=== PATIENT | female | born 1955 | race American Indian/Alaskan Native ===

== ENCOUNTER 2020-10-23 18:58 | Emergency (ER) | payer OTHER ==
[2020-10-23 20:03] VITALS: BP 154/66
--- NOTE | 2020-10-23 21:54 | Emergency Department Report ---
ED Back Pain/Injury HPI - General Chief Complaint: Back Pain/Injury Stated Complaint: BACK/NECK PAIN Source: patient Limitations: No Limitations - History of Present Illness Initial Comments: Patient is a 65-year-old -[place] female with a history of hypertension and chronic low back pain who presents to the ED with complaint of acute exacerbation of her chronic low back pain and right lateral neck pain that radiates to the right arm for the last 3 months, worse in the last week. Patient states that her job entails heavy lifting and that she has been taking ibuprofen 800 mg as needed for pain with no relief. Patient denies dizziness, syncope, chest pain, shortness of breath, fall, traumatic injury, dizziness, headache, numbness and tingling or weakness of upper and lower extremities bilaterally, nausea and vomiting or headache. MD Complaint: back pain (Lower back pain), other (right lateral neck pain that radiates to the left arm, heavy lifting) -: Gradual, month(s) (3) Similar Symptoms Previously: Yes (chronic) Place: home Radiation: none Severity: moderate Severity scale (0 -10): 4 Quality: sharp, aching Consistency: constant Improves With: none Worsens With: movement, walking Context: while lifting, turning/twisting Associated Symptoms: denies other symptoms. denies: confusion, weakness, chest pain, numbness, difficulty walking, cough, difficulty urinating, diaphoresis, incontinence, fever/chills, constipation, headaches, abdominal pain, loss of appetite, malaise, nausea/vomiting, rash, seizure, shortness of breath, other Treatments Prior to Arrival: NSAIDS (Motrin 800mg prior to arrival) - Related Data Previous Rx's Medication Instructions Recorded Last Taken Type Baclofen 20 mg PO QHS PRN #30 tablet 10/23/20 Unknown Rx predniSONE [Deltasone] 40 mg PO QDAY #10 tab 10/23/20 Unknown Rx traMADoL [Ultram] 50 mg PO Q6HR PRN #12 tablet 10/23/20 Unknown Rx Allergies Allergy/AdvReac Type Severity Reaction Status Date / Time No Known Allergies Allergy Unverified 10/23/20 20:00 ED Review of Systems ROS: Stated complaint: BACK/NECK PAIN Other details as noted in HPI Constitutional: denies: chills, fever Eyes: denies: eye pain, eye discharge, vision change ENT: denies: ear pain, throat pain Respiratory: denies: cough, shortness of breath, wheezing Cardiovascular: denies: chest pain, palpitations Endocrine: no symptoms reported Gastrointestinal: denies: abdominal pain, nausea, diarrhea Genitourinary: denies: urgency, dysuria, discharge Musculoskeletal: back pain (lower back pain), arthralgia (right lateral cervical pain). denies: joint swelling, myalgia Skin: denies: rash, lesions Neurological: denies: headache, weakness, paresthesias Psychiatric: denies: anxiety, depression Hematological/Lymphatic: denies: easy bleeding, easy bruising ED Past Medical Hx - Past Medical History Previous Medical History?: Yes Hx Hypertension: Yes - Surgical History Past Surgical History?: Yes Additional Surgical History: hyst, tubal PG - Medications Home Medications: Home Medications Medication Instructions Recorded Confirmed Last Taken Type Baclofen 20 mg PO QHS PRN #30 tablet 10/23/20 Unknown Rx predniSONE [Deltasone] 40 mg PO QDAY #10 tab 10/23/20 Unknown Rx traMADoL [Ultram] 50 mg PO Q6HR PRN #12 tablet 10/23/20 Unknown Rx ED Physical Exam - General Limitations: No Limitations General appearance: alert, in no apparent distress - Head Head exam: Present: atraumatic, normocephalic, normal inspection - Eye Eye exam: Present: normal appearance, PERRL, EOMI Pupils: Present: normal accommodation - ENT ENT exam: Present: normal exam, normal orophraynx, mucous membranes moist, TM's normal bilaterally, normal external ear exam - Neck Neck exam: Present: normal inspection, tenderness (Palpable right lateral cervical paraspinal musculoskeletal tenderness), full ROM - Respiratory Respiratory exam: Present: normal lung sounds bilaterally. Absent: respiratory distress, wheezes, rales, rhonchi, chest wall tenderness, accessory muscle use, decreased breath sounds, prolonged expiratory - Cardiovascular Cardiovascular Exam: Present: normal rhythm, bradycardia, normal heart sounds. Absent: systolic murmur, diastolic murmur, rubs, gallop - GI/Abdominal GI/Abdominal exam: Present: soft, normal bowel sounds. Absent: tenderness, guarding, rebound, hyperactive bowel sounds, hypoactive bowel sounds - Extremities Exam Extremities exam: Present: normal inspection, full ROM, normal capillary refill. Absent: tenderness, pedal edema, calf tenderness - Back Exam Back exam: Present: normal inspection, full ROM, tenderness (Palpable lumbosacral paraspinal musculoskeletal tenderness), muscle spasm, paraspinal tenderness, other (No midline vertebral tenderness). Absent: CVA tenderness (R), vertebral tenderness - Neurological Exam Neurological exam: Present: alert, oriented X3, CN II-XII intact, normal gait, reflexes normal - Psychiatric Psychiatric exam: Present: normal affect, normal mood - Skin Skin exam: Present: warm, dry, intact, normal color. Absent: rash ED Course Vital Signs 10/23/20 20:02 Temperature 98.6 F Pulse Rate 52 L Respiratory 17 Rate Blood Pressure 154/66 [Right] O2 Sat by Pulse 100 Oximetry ED Medical Decision Making - Medical Decision Making This is a 65-year-old -[place] female with a history of hypertension and chronic low back pain who presents to the ED with complaint of acute exacerbation of her chronic low back pain and right lateral neck pain that radiates to the right arm for the last 3 months, worse in the last week. Patient states that her job entails heavy lifting and that she has been taking ibuprofen 800 mg as needed for pain with no relief. In the ED, patient is alert and oriented x3 and is not in any distress. Patient is hemodynamically stable. Patient took ibuprofen prior to arrival in the ED and her pain is a 4 out of 10 in severity. Patient was therefore discharged home on medications for pain and muscle relaxants and advised to follow-up with her primary care physician in 5 to 7 days for reevaluation. Patient is advised return to the ED immediately if symptoms get worse. - Differential Diagnosis Muscle spasm; cervical radiculopathy; muscle strain; Critical care attestation.: If time is entered above; I have spent that time in minutes in the direct care of this critically ill patient, excluding procedure time. ED Disposition Clinical Impression: Acute exacerbation of chronic low back pain, Spasm of muscle of lower back, Cervical radiculopathy Disposition: 01 HOME / SELF CARE / HOMELESS Is pt being admited?: No Does the pt Need Aspirin: No Condition: Stable Instructions: Muscle Cramps and Spasms, [id number], Chronic Back Pain, [id number], Cervical Radiculopathy, [id number] Additional Instructions: Take education as advised with food, drink plenty fluids and follow-up with your primary care physician in 7 to 10 days for reevaluation. Return to the ED immediately if symptoms get worse. Prescriptions: Baclofen 20 mg PO QHS PRN #30 tablet PRN Reason: Muscle Spasm predniSONE [Deltasone] 40 mg PO QDAY #10 tab traMADoL [Ultram] 50 mg PO Q6HR PRN #12 tablet PRN Reason: Pain Referrals: MEME FOSTER MD [Staff Physician] - 7-10 days Forms: Work/School Release Form(ED) Time of Disposition: 21:53 Print Language: MALAY
== END 2020-10-23 22:30 | disposition home or self-care (01) ==
LOC: ED 18:58
DX: M62.830 Muscle spasm of back (principal); M54.5 Low back pain; M54.12 Radiculopathy, cervical region; I10 Essential (primary) hypertension; Z98.890 Other specified postprocedural states
CPT/HCPCS: 99282